=== PATIENT | male | born 1975 | race Caucasian/White ===

== ENCOUNTER → 2017-10-29 08:48 | Outpatient (CLI) | payer BC, SELFPAY ==
[2017-10-29 09:53] LABS: ALB/GLOB Ratio 0.8 RATIO (0.9-2.4); AST(SGOT) 30 U/L (15-37); Alanine Aminotransfer ALT/SGPT 51 U/L (16-61); Albumin, Serum 3.4 g/dL (3.2-5.0); Alkaline Phosphatase 57 U/L (45-117); Anion Gap 4 (5-15); BUN 12 mg/dL (7-18); BUN/Creat Ratio 11.5 RATIO (10-20); Calcium,Total 8.8 mg/dL (8.5-10.1); Chloride 107 mmol/L (98-107); Creatinine, Serum 1.04 mg/dL (0.70-1.30); EST Glomerular Filtration Rate 84 mL/min (>60); Est Glom Filt Rate - Afr Amer 102 mL/min (>60); Globulin 4.1 g/dL (2.2-4.2); Glucose 90 mg/dL (74-106); Potassium 4.2 mmol/L (3.5-5.1); Protein, Total 7.5 g/dL (6.4-8.2); Sodium Level 142 mmol/L (136-145)
== END ==
PROVIDERS: Visit Provider Internal Medicine
DX: G35 Multiple sclerosis (principal)
CPT/HCPCS: 36415; 80053

== ENCOUNTER → 2020-08-20 08:57 | Outpatient (CLI) | payer BC, SELFPAY ==
[2016-04-04 01:04] VITALS: BMI 25.0
[2020-08-20 09:13] LABS: Absolute Lymphocyte Count 0.62 X10^3/uL (0.83-4.51); Absolute Neutrophil Count 2.7 X10^3/uL (2.0-7.7); Basophil# 0.01 X10^3/uL; Basophil% 0.2 % (0-1); Hematocrit 38.3 % (40-54); Hemoglobin 12.3 g/dL (13.0-16.5); Lymphocyte # 0.62 X10^3/ul (4.0); Lymphocyte % 15.1 % (19-41); Mean Corp Hgb Conc 32.1 g/dL (32-36); Mean Corpuscular Hgb 30.6 pg (27.0-32.0); Mean Corpuscular Volume 95.3 fL (80-94); Mean Platelet Vol. 11.4 fl (6.2-12.0); Monocyte# 0.74 X10^3/uL; NRBC Flagged by Analyzer 0 % (0-5); Neutrophil # 2.73 X10^3/uL (2.7-7.7); Neutrophil % 66.5 % (47-70); Platelet Count 144 K/mm3 (150-450); RBC Distribution Width CV 13.1 % (11.6-14.6); RBC Distribution Width SD 46.4 fl (35.1-43.9); Red Blood Count 4.02 M/mm3 (4.6-6.2); White Blood Count 4.1 K/mm3 (4.4-11.0)
--- NOTE | 2020-08-20 09:15 | RAD_ITS ---
STUDY: X-RAY CHEST REASON FOR EXAM: Male, 44 years old. Sob, pain taking in a deep breath TECHNIQUE: PA and lateral views of the chest. COMPARISON: None. FINDINGS: Focal infiltrate is seen in the superior segment of the left lower lobe. Follow-up is recommended. There is no demonstrated pleural abnormality. Normal size heart. Normal mediastinum and yamilet. Normal visualized pulmonary arteries. Normal visualized aortic arch and descending thoracic aorta. Normal visualized thoracic spine. Normal visualized ribs, clavicles, and shoulders. There is no demonstrated abnormality of the visualized soft tissue structures of the upper abdomen. RAD/Chest PA and Lateral IMPRESSION: Focal infiltrate in the superior segment of the left lower lobe. Follow-up is recommended. Electronically Signed: Eliseo Kumar, at 9:54 EST , Service support ,
[2020-08-20 09:29] LABS: D-Dimer Quantitative (DVT/PE) 0.37 FEU/ug/m (0.27-0.49)
[2020-08-20 09:30] LABS: ALB/GLOB Ratio 0.6 RATIO (0.9-2.4); AST(SGOT) 33 U/L (15-37); Alanine Aminotransfer ALT/SGPT 42 U/L (16-61); Albumin, Serum 2.9 g/dL (3.2-5.0); Alkaline Phosphatase 56 U/L (45-117); Anion Gap 6 (5-15); BUN 11 mg/dL (7-18); Calcium,Total 8.4 mg/dL (8.5-10.1); Chloride 102 mmol/L (98-107); Creatinine, Serum 0.91 mg/dL (0.70-1.30); EST Glomerular Filtration Rate 96 mL/min (>60); Est Glom Filt Rate - Afr Amer 117 mL/min (>60); Globulin 4.9 g/dL (2.2-4.2); Glucose 81 mg/dL (74-106); Protein, Total 7.8 g/dL (6.4-8.2); Sodium Level 139 mmol/L (136-145)
== END ==
PROVIDERS: PCP Internal Medicine; Visit Provider Internal Medicine
DX: R06.02 Shortness of breath (principal)
CPT/HCPCS: 36415; 71046; 80053; 85025; 85379

== ENCOUNTER 2020-08-23 21:37 | Emergency (ER) | payer BC, SELFPAY ==
[2020-08-23 21:39] VITALS: BP 144/91; PULSE 82; RESP 18; TEMP 37.7; O2SAT 95; BMI 23.1
--- NOTE | 2020-08-23 21:58 | ED.DCSUM_ITS ---
History of Present Illness Chief Complaint: Fever Narrative: This patient is a 44-year-old male who presents with fever. About 1 month ago his tested positive for Covid. He then developed symptoms including cough body aches fevers loss of sense of taste and smell. He was not tested at that time because he felt his symptoms were consistent with Covid and that testing would not change management consultant. However he continues to have fevers a month later. He is not short of breath. He just developed some diarrhea today. He spoke to his primary care physician. Had outpatient labs and a chest x-ray done which showed a left lower lobe pneumonia. He had a negative D-dimer. He was prescribed Levaquin and Zithromax. He is on day 3 of antibiotics but his primary care physician was concerned because he was still running a fever. No nausea or vomiting. He is not short of breath. He does have a history of mul tiple sclerosis. He was also recently put on prednisone as he had started to develop MS flare symptoms. Signs MS patient denies any other medical history such as diabetes hypertension hyperlipidemia. Past Medical History - Allergies and Home Meds Allergies/Adverse Reactions: Allergies amoxicillin Adverse Reaction (Verified 08/23/20 21:42) Rash Primary Care Physician: Abena Osorio DO [Primary Care Provider] - Past Medical History: - - Multiple sclerosis Smoking Status: Never smoker Review of Systems All systems negative except as indicated General: Reports: Fever Eyes: Denies: Visual changes - bilaterally ENT: Denies: Bilateral ear pain Cardiovascular: Denies: Chest pain Respiratory: Reports: Cough. Denies: Dyspnea Gastrointestinal: Reports: Diarrhea. Denies: Abdominal pain, Nausea, Vomiting Musculoskeletal: Reports: Myalgias, Arthralgias Skin: Denies: Rash Neurological: Denies: Headache Hematologic: Denies: Easy bruising Allergy: Denies: Uticaria Physical Exam Vital Signs/Narrative: Vital Signs Temp Pulse Resp BP Pulse Ox 08/23/20 21:39 99.9 F H 82 18 144/91 H 95 Inital Vital Signs reviewed: Yes General: Well nourished, Well developed Head: Normocephalic Eyes: EOMI ENT: Moist mucous membranes Neck: Supple Cardiovascular: Regular rate, Regular rhythm Respiratory: No distress, CTA bilaterally. Negative for: Rales, Wheezing Abdomen: Soft, Nontender Skin: Normal color Neurological: Alert Psychological: Normal affect Diagnostic/Tx/Re-eval Impressions Chest X-Ray 08/23/20 22:20 IMPRESSION: New infiltrate overlying the left upper lung on frontal projection compared to previous exam. Electronically Signed: Blaise Martinez DO at 22:39 EST , Service support , Chest CTA 08/23/20 23:06 IMPRESSION: 1. No evidence of pulmonary embolism or aortic dissection. 2. Scattered groundglass opacities throughout the bilateral upper and lower lobes consistent with patient''s known viral etiology of illness. Electronically Signed: Blaise MartinezDO at 23:49 EST , Service support , 08/23/20 22:20 Chest 1 View (Portable) [RAD] Stat 08/23/20 23:06 CTA Chest W/WO Contrast [CT] Stat 08/23/20 22:15 Mucosa - Nose SARS-CoV-2 Antigen (Rapid) - Final Laboratory Results 08/23/20 08/23/20 08/23/20 22:15 22:15 22:15 WBC 3.6 L RBC 4.22 L Hgb 12.8 L Hct 39.4 L MCV 93.4 MCH 30.3 MCHC 32.5 RDW Std Deviation 45.0 H RDW Coeff of Heather 13.3 Plt Count 181 MPV 11.0 Immature Gran % (Auto) 0.600 Neut % (Auto) 76.2 H Lymph % (Auto) 11.6 L [place] % (Auto) 11.3 H Eos % (Auto) 0.0 Baso % (Auto) 0.3 Absolute Neuts (auto) 2.8 Absolute Lymphs (auto) 0.42 L Nucleated RBC % 0 Differential Comment SCANNED Diff Path Review May foll Sodium 136 Potassium 3.9 Chloride 101 Carbon Dioxide 30.0 Anion Gap 5 BUN 16 Creatinine 1.00 Estim Creat Clear Calc 89.97 Est GFR (MDRD) Af Amer 105 Est GFR (MDRD) Non-Af 87 BUN/Creatinine Ratio 16.1 Glucose 113 H Lactic Acid 1.4 Calcium 8.6 Total Bilirubin 0.40 AST 28 ALT 38 Alkaline Phosphatase 53 Total Protein 8.0 Albumin 2.8 L Globulin 5.2 H Albumin/Globulin Ratio 0.5 L - Medical Decision Making Patient's laboratory studies are notable for leukopenia which can be seen with a viral illness and there is high clinical suspicion for COVID-19. Patient's Covid antigen returned negative. However false negative rate increases with the antigen test to further illness. I suspect this is a false negative. One-view portable chest x-ray was obtained. On my interpretation the shows a right upper lobe infiltrate which is new from prior x-ray. On previous x-ray patient had a lingular infiltrate. Given bilateral infiltrates a CT of the chest was obtained to further characterize. Given the coagulopathy associated with COVID- 19 I performed this as a CTA of the chest also rule out pulmonary embolism. No pulmonary believes him or aortic dissection but there are bilateral groundglass infiltrates consistent with a viral pneumonia. Patient is already on Levaquin and azithromycin. He was mainly sent in because he was still running fever despite 3 days of antibiotics. This may be related the fact that the pneumonia is viral in nature. However even with a secondary bacterial pneumonia it is possible still be running a fever a few days into treatment. He is not short of breath. He is not hypoxic. At this time I do not see an indication for hospitalization. Blood cultures were also obtained. Lactic acid was normal. Patient is agreeable to this plan. He will continue current management but does understand return for new or worsening symptoms and was advised on signs and symptoms to monitor for. ED Disposition - Plan for ED Patient: Disposition: Home or Assisted Living Diagnosis: Bilateral pneumonia Instructions: ED Pneumonia (Adult), Coronavirus Disease 2019 (COVID-19): Overview Referrals: Abena Osorio DO [Primary Care Provider] -
--- NOTE | 2020-08-23 22:20 | RAD_ITS ---
STUDY: X-RAY CHEST REASON FOR EXAM: Male, 44 years old. PT ASSUMES HE HAD COVID 19,FEVER X 27 DAYS WAS POSITIVE AND PT HAD SAME SYMPTOMS.HERE BECAUSE OF FEVER HAS CONTINUED SO LONG 101.5 AND COUGH HX MS TECHNIQUE: Single AP portable view of the chest. COMPARISON: 08/20/2020 FINDINGS: Mild infiltrate overlies the left upper lung on frontal projection. There is no demonstrated pleural abnormality. Normal size heart. Normal mediastinum and yamilet. Normal visualized pulmonary arteries. Normal visualized aortic arch and descending thoracic aorta. Normal visualized thoracic spine. Normal visualized ribs, clavicles, and shoulders. There is no demonstrated abnormality of the visualized soft tissue structures of the upper abdomen. RAD/Chest 1 View (Portable) IMPRESSION: New infiltrate overlying the left upper lung on frontal projection compared to previous exam. Electronically Signed: Blaise Martinez DO at 22:39 EST , Service support ,
[2020-08-23] MEDS: 0.9% Normal Saline 1,000 ML 999 ML IV (22:21)
[2020-08-23 22:29] LABS: Absolute Lymphocyte Count 0.42 X10^3/uL (0.83-4.51); Absolute Neutrophil Count 2.8 X10^3/uL (2.0-7.7); Basophil# 0.01 X10^3/uL; Basophil% 0.3 % (0-1); Hematocrit 39.4 % (40-54); Hemoglobin 12.8 g/dL (13.0-16.5); Lymphocyte # 0.42 X10^3/ul (4.0); Lymphocyte % 11.6 % (19-41); Mean Corp Hgb Conc 32.5 g/dL (32-36); Mean Corpuscular Hgb 30.3 pg (27.0-32.0); Mean Corpuscular Volume 93.4 fL (80-94); Monocyte# 0.41 X10^3/uL; Monocyte% 11.3 % (0-10); NRBC Flagged by Analyzer 0 % (0-5); Neutrophil # 2.77 X10^3/uL (2.7-7.7); Neutrophil % 76.2 % (47-70); POSITIVE DIFFERENTIAL YES; Platelet Count 181 K/mm3 (150-450); RBC Distribution Width CV 13.3 % (11.6-14.6); Red Blood Count 4.22 M/mm3 (4.6-6.2); White Blood Count 3.6 K/mm3 (4.4-11.0)
[2020-08-23 22:43] LABS: Differential Indicated SCAN CRITERIA MET
[2020-08-23 22:46] LABS: ALB/GLOB Ratio 0.5 RATIO (0.9-2.4); AST(SGOT) 28 U/L (15-37); Alanine Aminotransfer ALT/SGPT 38 U/L (16-61); Albumin, Serum 2.8 g/dL (3.2-5.0); Alkaline Phosphatase 53 U/L (45-117); Anion Gap 5 (5-15); BUN 16 mg/dL (7-18); BUN/Creat Ratio 16.1 RATIO (10-20); Calcium,Total 8.6 mg/dL (8.5-10.1); Chloride 101 mmol/L (98-107); EST Glomerular Filtration Rate 87 mL/min (>60); Est Glom Filt Rate - Afr Amer 105 mL/min (>60); Estimated Creatinine Clearance 89.97 ml/min; Globulin 5.2 g/dL (2.2-4.2); Glucose 113 mg/dL (74-106); Potassium 3.9 mmol/L (3.5-5.1); Sodium Level 136 mmol/L (136-145)
[2020-08-23 22:51] LABS: Differential Comment SCANNED
[2020-08-23 22:52] LABS: Lactic Acid 1.4 mmol/L (0.4-1.9)
[2020-08-23 23:04] VITALS: BP 146/105; PULSE 81; RESP 24; TEMP 37.7; O2SAT 97
--- NOTE | 2020-08-23 23:06 | CT_ITS ---
STUDY: CTA CHEST REASON FOR EXAM: Male, 44 years old. FEVER, COUGH X 1 MO. SHERICE, LLL PNEUMONIA. NEG COVID TODAY, DIAGNOSED 27 DAYS AGO. RADIATION DOSAGE (If Supplied By Facility): CTDIvol = ( 8.18 ) mGy, DLP = ( 331.67 ) mGycm TECHNIQUE: The examination was performed with the intravenous administration of IV 100mL Isovue-370. Post-processing of the angiographic images was performed, with multiplanar reformation and 3D reconstruction. Individualized dose optimization techniques were used for this CT. COMPARISON: None. FINDINGS: Normal enhancement of the main pulmonary artery and right and left pulmonary arteries. Normal enhancement of the bilateral peripheral pulmonary arteries. There is no demonstrated pulmonary embolism. Normal thoracic aorta and visualized great vessels. There is no demonstrated aortic dissection. Normal heart and pericardium. Normal mediastinum. Normal hilar regions. Normal visualized trachea and bronchi. The lungs are well expanded. Scattered groundglass opacities throughout the bilateral upper and lower lobes consistent with patient''s known viral etiology of illness. Normal pleura. Normal chest wall structures. Normal osseous structures. Normal visualized upper abdomen. CT/CTA Chest W/WO Contrast IMPRESSION: 1. No evidence of pulmonary embolism or aortic dissection. 2. Scattered groundglass opacities throughout the bilateral upper and lower lobes consistent with patient''s known viral etiology of illness. Electronically Signed: Blaise Martinez DO at 23:49 EST , Service support ,
[2020-08-24 00:12] VITALS: BP 146/102; PULSE 85; RESP 23; O2SAT 96
[2020-08-25 12:13] LABS: Pathologist Review Reviewed
== END 2020-08-24 00:13 | disposition home or self-care (01) ==
PROVIDERS: Emergency Provider Emergency Medicine; PCP Internal Medicine
DX: J18.9 Pneumonia, unspecified organism (principal); G35 Multiple sclerosis
CPT/HCPCS: 71045; 71275; 80053; 83605; 85025; 87040; 87426; 96360; 99285; J7030; Q9967; A4216

== ENCOUNTER → 2020-09-12 | Outpatient (CLI) | payer BC, SELFPAY ==
[2020-08-23 21:39] VITALS: BMI 23.1
[2020-09-12 16:58] LABS: D-Dimer Quantitative (DVT/PE) 1.96 FEU/ug/m (0.27-0.49)
== END | disposition home or self-care (01) ==
LOC: LABSPEC 14:55
PROVIDERS: PCP Internal Medicine; Referring Provider Internal Medicine; Visit Provider Internal Medicine
DX: R07.9 Chest pain, unspecified (principal)
CPT/HCPCS: 85379

== ENCOUNTER → 2020-09-15 08:29 | Outpatient (CLI) | payer BC, OTHER, SELFPAY ==
[2020-08-23 21:39] VITALS: BMI 23.1
--- NOTE | 2020-09-15 08:54 | CT_ITS ---
STUDY: CTA CHEST REASON FOR EXAM: Male, 45 years old. ELEVATED D-DIMER, S/P COVID X 2 MONTH AGO, STILL HAVING DIFFICULTY WITH DEEP BREATHS RADIATION DOSAGE (If Supplied By Facility): CTDIvol = ( 10 ) mGy, DLP = ( 376.32 ) mGycm TECHNIQUE: The examination was performed with the intravenous administration of IV 100mL Isovue-300. Post-processing of the angiographic images was performed, with multiplanar reformation and 3D reconstruction. Individualized dose optimization techniques were used for this CT. COMPARISON: Comparison is made with prior examination dated 08/23/2020. FINDINGS: Normal enhancement of the main pulmonary artery and right and left pulmonary arteries. Normal enhancement of the bilateral peripheral pulmonary arteries. There is no demonstrated pulmonary embolism. Normal thoracic aorta and visualized great vessels. There is no demonstrated aortic dissection. Normal heart and pericardium. Normal mediastinum. Normal hilar regions. Normal visualized trachea and bronchi. The lungs are well expanded. Since prior examination, there is been a marked degree of improvement of the bilateral patchy areas of airspace disease. There now is evidence of a focal area of infiltration in the medial aspect of the left lung apex extending inferiorly into the posterior medial segment of the left upper lobe. This was not seen on prior study. The previously seen infiltrate in the right upper lobe as well as in the left lower lung zone most completely resolved. Minimal residual changes persist in the right lower lobe laterally. Normal pleura. Normal chest wall structures. Normal osseous structures. Normal visualized upper abdomen. CT/CTA Chest W/WO Contrast IMPRESSION: New focal infiltrate seen in the left lung apex extending into the posterior medial segment of the left upper lobe. The remainder of the examination shows marked improvement as compared to prior study. Electronically Signed: lEiseo Kumar MD at 9:30 EST , Service support ,
--- NOTE | 2020-09-15 15:02 | VDLE_ITS ---
Reason For Study: Calf Pain RIGHT LEFT GSV is normal. GSV is normal. CFV is compressible, spontaneous, phasic, CFV is compressible, spontaneous, phasic, competent and demonstrates normal competent, and demonstrates normal augmentation. augmentation. FV is compressible, spontaneous, phasic, FV is compressible, spontaneous, phasic, competent and demonstrates normal competent and demonstrates normal augmentation. augmentation. POP V is compressible, spontaneous, phasic, POP V is compressible, spontaneous, phasic, competent and demonstrates normal competent and demonstrates normal augmentation. augmentation. T/P Trunk is compressible. T/P Trunk is compressible. PTV is compressible. PTV is compressible. RT PerV is compressible. LT PerV is compressible. Procedure Exam performed in department. A preliminary report was called and/or faxed to Dr. Osorio. Interpretation Summary Deep veins of the lower extremities are bilaterally patent and compressible segmentally. There is no evidence of deep vein thrombosis on either side. Valvular competence appears intact within the proximal deep venous systems bilaterally. The great saphenous veins appear bilaterally patent and compressible segmentally. Ordering Physician: Abena Osorio Referring Physician: Abena Osorio Performed By: Mahogany Arreaga, YOSELYN, RVT
== END ==
PROVIDERS: PCP Internal Medicine; Referring Provider Internal Medicine; Visit Provider Internal Medicine
DX: R79.89 Other specified abnormal findings of blood chemistry (principal); M79.661 Pain in right lower leg; M79.662 Pain in left lower leg
CPT/HCPCS: 71275; 93970; Q9967

== ENCOUNTER → 2021-07-22 15:37 | Outpatient (CLI) | payer BC, OTHER, SELFPAY ==
--- NOTE | 2021-07-22 15:50 | CT_ITS ---
STUDY: CT ABDOMEN AND PELVIS WITHOUT CONTRAST REASON FOR EXAM: Male, 45 years old. STONE PROTOCOL RADIATION DOSAGE (If Supplied By Facility): CTDIvol = ( 6.80 ) mGy, DLP = ( 339.87 ) mGycm TECHNIQUE: Transaxial images were obtained from the dome of the diaphragm to the symphysis pubis without oral contrast, and without intravenous contrast. Sagittal and coronal images were reconstructed. Individualized dose optimization techniques were used for this CT. COMPARISON: None. FINDINGS: The visualized lung bases are unremarkable. The visualized portions of the heart are within normal limits. Normal liver. Normal gallbladder and extrahepatic biliary system. Normal spleen. Normal pancreas. Normal bilateral adrenal glands. Mild hydronephrosis of the right kidney mild right hydroureter. 3 mm stone in left kidney. Normal visualized stomach. Normal small intestine. Fecal retention in the colon. The appendix is visualized and appears normal. Normal abdominal aorta. Normal inferior vena cava. Normal retroperitoneum. There is a 2 mm stone within the intramural segment of the right UVJ of the urinary bladder. Normal abdominal wall. Normal osseous structures. CT/Abdomen/Pelvis without Cont IMPRESSION: Right hydronephrosis and hydroureter with a stone noted at the right UVJ. Colonic fecal retention. Electronically Signed: Warner Glaser DO at 17:22 EST Tel [phone], Service support ,
== END ==
PROVIDERS: PCP Internal Medicine; Referring Provider Internal Medicine; Visit Provider Internal Medicine
DX: R10.9 Unspecified abdominal pain (principal)
CPT/HCPCS: 74176

== ENCOUNTER → 2022-02-04 | Outpatient (CLI) | payer BC, OTHER, SELFPAY ==
--- NOTE | 2022-02-04 12:59 | ECHODONC_ITS ---
Reason For Study: SOB, Multiple Myeloma Procedure This was a 2D Doppler, Color Flow transthoracic echocardiogram. Myocardial strain analysis was performed in this exam to aid in the assessment of cardiac function. Exam performed in department. Left Ventricle Normal LV size. Left ventricular systolic function is normal. The estimated ejection fraction is 60 %. Normal diastology for age. No regional wall motion abnormalities noted. Right Ventricle Normal RV size. Normal systolic function. Atria Normal left atrium. Normal right atrium. Mitral Valve Normal mitral valve. Tricuspid Valve Normal tricuspid valve. Trivial tricuspid valve insufficiency. Aortic Valve Normal aortic valve. Trisinus/trileaflet aortic valve. Pulmonic Valve Normal pulmonic valve. Great Vessels Normal aortic root. The pulmonary artery is normal size. Normal inferior vena cava. Pericardium/Pleural No pericardial effusion. MMode/2D Measurements & Calculations LVIDd: 4.2 cm IVSd: 0.87 cm Ao root diam: 2.8 cm LVIDs: 2.3 cm LVPWd: 0.95 cm RVDd: 3.5 cm FS: 45.4 % LAV(MOD-bp): 40.8 ml LVAd ap4: 24.3 cm2 LVAd ap2: 26.2 cm2 LAV(MOD-bp) Indexed: 21.1 ml/m2 LVLd ap4: 7.7 cm LVLd ap2: 7.4 cm LAV(MOD-sp2): 49.3 ml EDV(MOD-sp4): 64.0 ml EDV(MOD-sp2): 80.8 ml LAV(MOD-sp4): 32.2 ml EDV(sp4-el): 65.2 ml EDV(sp2-el): 78.2 ml LVAs ap4: 11.4 cm2 LVAs ap2: 12.0 cm2 LVLs ap4: 6.2 cm LVLs ap2: 6.1 cm ESV(MOD-sp4): 19.2 ml ESV(MOD-sp2): 21.0 ml ESV(sp4-el): 17.9 ml ESV(sp2-el): 20.0 ml EF(MOD-sp4): 70.1 % EF(MOD-sp2): 74.1 % EF(sp4-el): 72.6 % SV(MOD-sp4): 44.9 ml SV(MOD-sp2): 59.9 ml SV(sp4-el): 47.3 ml LA dimension(2D): 3.3 cm LA A4 area: 13.9 cm2 RA A4 area: 12.4 cm2 Doppler Measurements & Calculations MV E max manuel: 91.2 cm/sec Lat Peak E' Manuel: 11.5 cm/sec Med Peak E' Manuel: 11.8 cm/sec MV A max manuel: 71.6 cm/sec E/E' lat: 7.9 E/E' med: 7.8 MV E/A: 1.3 Ao V2 max: 168.1 cm/sec LV V1 max: 144.9 cm/sec PA V2 max: 96.5 cm/sec Ao max P.3 mmHg LV V1 max P.4 mmHg ECHO/ONC Echo Complete Interpretation Summary Normal LV size. Left ventricular systolic function is normal. The estimated ejection fraction is 60 %. Normal diastology for age. The global longitudinal strain is normal. The global longitudinal strain = -23. 1 % (normal). Ordering Physician: Elton Barajas Referring Physician: Abena Osorio D.O. Performed By: Alyssa Suggs RDCS
--- NOTE | 2022-02-04 14:30 | BD_ITS ---
STUDY: DUAL ENERGY X-RAY ABSORPTIOMETRY / DXA REASON FOR EXAM: Male, 46 years old. MULTIPLE MYELOMA/MULTIPLE SCLEROSIS TECHNIQUE: Bone Mineral Density (BMD) measurements of lumbar spine and bilateral hips were obtained. COMPARISON: None. FINDINGS: Lumbar Spine (L1-L4): g/cm2 (1.070) / T-score (0.2) / Z-score (0.0) Findings are suggestive of normal bone density with a low fracture risk. Left Femur Total: g/cm2 (0.913) / T-score (-0.8) / Z-score (-0.5) Left Femoral Neck: g/cm2 (0.871) / T-score (-0.4) / Z-score (0.2) Right Femur Total: g/cm2 (0.969) / T-score (-0.4) / Z-score (-0.2) Right Femoral Neck: g/cm2 (0.861) / T-score (-0.5) / Z-score (0.1) BD/Dexa Bone Density Study IMPRESSION: The patient is considered normal as outlined below according to World Mathew Organization (WHO) criteria with a low fracture risk. Reference Information: The T-score is the number of standard deviations above or below the standard which is normal for young adults at their peak bone mineral density. The World Health Organization (WHO) interprets the T-scores as follows: Above -1 Normal bone density Between -1 and -2.5 Osteopenia Equal to / or below -2.5 Osteoporosis As a practical clinical guideline, osteopenia may be graded as follows: Mild -1 through -1.5 Moderate -1.6 through -2.0 Severe -2.1 through -2.4 The Z-score is the number of standard deviations above or below age-matched controls. A Z-score of less than -1.5 would be considered abnormal. References: 1. NIH Osteoporosis and Related Bone Diseases www osteo.org 2. International Society for Clinical Densitometry www iscd.org 3. National Osteoporosis Foundation www nof.org Electronically Signed: Eliseo Kumar MD at 10:15 EDT ,
== END | disposition home or self-care (01) ==
PROVIDERS: PCP Internal Medicine; Referring Provider Internal Medicine Medical Oncology; Visit Provider Internal Medicine Medical Oncology
DX: C90.00 Multiple myeloma not having achieved remission (principal); G35 Multiple sclerosis; R06.02 Shortness of breath
CPT/HCPCS: 77080; 93306; 93356

== ENCOUNTER → 2022-05-04 | Outpatient (CLI) | payer BC, OTHER, SELFPAY ==
[2022-05-04 17:35] LABS: Erythrocyte Sedimentation Rate 62 mm/hr (0-20)
[2022-05-04 17:37] LABS: Absolute Lymphocyte Count 1.44 X10^3/uL (0.83-4.51); Absolute Neutrophil Count 2.9 X10^3/uL (2.0-7.7); Basophil# 0.04 X10^3/uL; Basophil% 0.8 % (0-1); Eosinophil# 0.11 X10^3/uL; Eosinophils% 2.2 % (0-5); Hematocrit 39.6 % (40-54); Hemoglobin 13.2 g/dL (13.0-16.5); Lymphocyte # 1.44 X10^3/ul (0.83-4.51); Mean Corp Hgb Conc 33.3 g/dL (32-36); Mean Corpuscular Hgb 30.9 pg (27.0-32.0); Mean Corpuscular Volume 92.7 fL (80-94); Mean Platelet Vol. 11.9 fl (6.2-12.0); Monocyte# 0.44 X10^3/uL; Monocyte% 8.9 % (0-10); NRBC Flagged by Analyzer 0 % (0-5); Neutrophil # 2.93 X10^3/uL (2.7-7.7); Neutrophil % 58.9 % (47-70); Platelet Count 181 K/mm3 (150-450); RBC Distribution Width CV 12.8 % (11.6-14.6); RBC Distribution Width SD 43.5 fl (35.1-43.9); Red Blood Count 4.27 M/mm3 (4.6-6.2)
[2022-05-04 17:44] LABS: ALB/GLOB Ratio 0.7 RATIO (0.9-2.4); AST(SGOT) 15 U/L (15-37); Alanine Aminotransfer ALT/SGPT 18 U/L (16-61); Albumin, Serum 3.3 g/dL (3.2-5.0); Alkaline Phosphatase 46 U/L (45-117); Anion Gap 7 (5-15); BUN 12 mg/dL (7-18); BUN/Creat Ratio 10.7 RATIO (10-20); Calcium,Total 9.1 mg/dL (8.5-10.1); Chloride 106 mmol/L (98-107); Creatinine, Serum 1.12 mg/dL (0.70-1.30); EST Glomerular Filtration Rate 76 mL/min (>60); Est Glom Filt Rate - Afr Amer 91 mL/min (>60); Globulin 4.6 g/dL (2.2-4.2); Glucose 101 mg/dL (74-106); LDH 125 U/L (87-241); Potassium 3.9 mmol/L (3.5-5.1); Protein, Total 7.9 g/dL (6.4-8.2); Sodium Level 142 mmol/L (136-145); Uric Acid 5.4 mg/dL (3.5-7.2)
[2022-05-07 16:09] LABS: Albumin 3.7 g/dL (2.9-4.4); Alpha-1-Globulins 0.1 g/dL (0.0-0.4); Alpha-2-Globulins 0.5 g/dL (0.4-1.0); Free Kappa Light Chains 5.9 mg/L (3.3-19.4); Free Lambda Light Chains 520.5 mg/L (5.7-26.3); Gamma Globulin 0.4 g/dL (0.4-1.8); Immunoglobulin G 479 mg/dL (603-1613); PROEL- TOTAL PROTEIN 7.4 g/dL (6.0-8.5)
[2022-05-08 16:50] LABS: Immunoglobulin A 2527 mg/dL (90-386)
[2022-05-08 16:51] LABS: Immunoglobulin M < 5 mg/dL (20-172)
== END | disposition home or self-care (01) ==
LOC: LAB 16:20
PROVIDERS: PCP Internal Medicine; Visit Provider Internal Medicine Medical Oncology
DX: C90.00 Multiple myeloma not having achieved remission (principal)
CPT/HCPCS: 36415; 80053; 82784; 83615; 83883; 84165; 84550; 85025; 85652; 86334

== ENCOUNTER → 2023-06-21 | Outpatient (CLI) | payer OTHER, SELFPAY | END | disposition home or self-care (01) | PROVIDERS: PCP Nurse Practitioner Family; Referring Provider Nurse Practitioner Family; Visit Provider Nurse Practitioner Family | DX: G47.10 Hypersomnia, unspecified (principal) | CPT/HCPCS: 95806 ==

== ENCOUNTER 2023-12-30 06:56 | Day surgery (SDC) | payer OTHER, SELFPAY ==
[2023-12-30 07:13] VITALS: BP 133/91; PULSE 72; RESP 16; TEMP 36.4; O2SAT 99; BMI 27.1
[2023-12-30] MEDS: Lactated Ringers 1,000 ML 15 ML IV (07:24)
--- NOTE | 2023-12-30 08:13 | HP.PCM_ITS ---
HPI - General HPI Narrative ROBSON REECE, is a 48 M who presents for screening colonoscopy. Patient has never had a screening colonoscopy in the past. He denies abdominal pain or blood in the stool. He denies family history of colon cancer. He is on no blood thinners. [facility] Medical History (Updated 12/26/23 @ 14:12 by Angelo Rosa) Family hx of colon cancer History of echocardiogram Non-smoker Umbilical hernia Wears contact lenses Home Medications acetaminophen 325 mg capsule 325 mg PO ONCE PRN fever or pain 01/22/22 [History Last Taken Unknown] amlodipine 10 mg tablet 10 mg PO DAILY 08/03/23 [History Last Taken 12/28/23] ocrelizumab 30 mg/mL intravenous solution 300 mg IV [id number] 08/03/23 [History Last Taken Unknown] baclofen 10 mg tablet 10 mg PO BID PRN PRN muscle spasm 12/26/23 [History Last Taken Unknown] Allergy/AdvReac Type Severity Reaction Status Date / Time amoxicillin AdvReac Rash Verified 12/30/23 07:12 Family History Other Diabetes Hypertension Social History Smoking Status: Never smoker Past Medical/Surgical History Planned Operation Planned Operative Procedure/s: COLONOSCOPY Previous Hospitalizations/Surgeries HX Hospitalizations: No Any Problems With Anesthesia: No You/Your Family Experience Fever (Hyperthermia) With Anes: No Cholinesterase deficiency: No Cardiovascular Hx Hypertension: Yes (CONTROLLED WITH MEDS) Respiratory Hx Sleep Apnea: No Hx Respiratory Tract Infection/Cold (presently): No Do You Snore Loudly (louder than talking or can be heard): No Do You Often Feel Tired/ Fatigued/ Sleepy Dring Daytime?: No Has Anyone Observed You Stop Breathing During Sleep?: No Result (for STOP score): Negative Smoking Status: Never smoker Neurological Does patient have nerve stimulator: No Miscellaneous Recent Exposure to Contagious Disease: No Allergies amoxicillin Adverse Reaction (Verified 12/30/23 07:12) Rash Discharge After D/C, Where Do you Plan to Go: Return Home Vital Signs Vital Signs Vital Signs: 12/30/23 07:13 12/30/23 07:13 Temperature 97.5 F L Temperature Source Temporal Pulse Rate 72 Respiratory Rate 16 Respiratory Pattern Normal Blood Pressure 133/91 H Blood Pressure Mean 105 Blood Pressure Source Monitor Blood Pressure Position Semi-Fowlers Blood Pressure Location Right Arm Pulse Ox 99 Oxygen Delivery Method Room Air Weight Weight: 173 lb Body Mass Index (BMI) 27.1 Physical Exam Const alert and oriented x3 HEENT normocephalic Eyes PERRL Resp normal respiratory effort and normal air movement Cardio regular rate and regular rhythm GI soft to palpation, non-tender and non-distended Extremity normal to inspection Assessment & Plan Assessment/Plan (1) Encounter for screening for malignant neoplasm of colon: PLAN: I explained endoscopy in detail to the patient. I explained the risks including but not limited to stroke or heart attack with anesthesia, perforation of the GI tract, bleeding, infection. I explained that any of these could necessitate further emergency surgery. The patient understands and all questions were answered sufficiently. The patient wishes to proceed with procedure. Juan C Cuba MD Pager: [facility] [address] [place] [address], [address] [place] [address] Office: Surgery Risks - Colonoscopy Risks Include but are not Limited To: Risks include but are not limited to: Bleeding, perforation requiring further surgery, inability to complete colonoscopy requiring barium enema.
[2023-12-30 08:44] VITALS: BP 109/73; BP 133/91; PULSE 66; RESP 18; TEMP 36.1; O2SAT 97
--- NOTE | 2023-12-30 08:47 | OP.COLON_ITS ---
Patient Name: Jaxon Douglas Procedure Date: 12/30/2023 8:17 AM Date of : 1975 Age: 48 Procedure: Colonoscopy Indications: Screening for colorectal malignant neoplasm Providers: Juan C Cuba MD Referring MD: Neeraj Becerril [facility], [employer] Medicines: Propofol per Anesthesia Patient Profile: This is a 48 year old male. Refer to note in patient chart for documentation of history and physical. Last Colonoscopy: none. The patient's first colonoscopy is today. Complications: No immediate complications. Procedure: Pre-Anesthesia Assessment: - Prior to the procedure, a History and Physical was performed, and patient medications and allergies were reviewed. The patient's tolerance of previous anesthesia was also reviewed. The risks and benefits of the procedure and the sedation options and risks were discussed with the patient. All questions were answered, and informed consent was obtained. Prior Anticoagulants: The patient has taken no anticoagulant or antiplatelet agents. After reviewing the risks and benefits, the patient was deemed in satisfactory condition to undergo the procedure. After I obtained informed consent, the scope was passed under direct vision. Throughout the procedure, the patient's blood pressure, pulse, and oxygen saturations were monitored continuously. The colonoscope was introduced through the anus and advanced to the cecum, identified by appendiceal orifice and ileocecal valve. The colonoscopy was performed without difficulty. The patient tolerated the procedure well. The quality of the bowel preparation was good. The ileocecal valve, appendiceal orifice, and rectum were photographed. Scope In: 8:26:08 AM Scope Withdrawal Time 0 hours 6 minutes 43 seconds Scope Out: 8:39:30 AM Total Procedure Duration Time 0 hours 13 minutes 22 seconds Findings: The entire examined colon appeared normal on direct and retroflexion views. Impression: - The entire examined colon is normal on direct and retroflexion views. - No specimens collected. Recommendation: - Discharge patient to home. - Resume previous diet. - Continue present medications. - Repeat colonoscopy in 10 years for screening purposes. Procedure Code(s): --- Professional --- 08389, Colonoscopy, flexible; diagnostic, including collection of specimen(s) by brushing or washing, when performed (separate procedure) Diagnosis Code(s): --- Professional --- Z12.11, Encounter for screening for malignant neoplasm of colon CPT copyright 2021 [employer]. All rights reserved. The codes documented in this report are preliminary and upon risk control field representative review may be revised to meet current compliance requirements. Juan C Cuba MD 12/30/2023 8:46:41 AM This report has been signed electronically. Number of Addenda: 0 Note Initiated On: 12/30/2023 8:17 AM
--- NOTE | 2023-12-30 08:47 | OP.CCLET_ITS ---
12/30/2023 Neeraj Becerril [facility], [employer] Re : Colonoscopy procedure for Jaxon Douglas Dear Jerrica This procedure was performed on Saturday, December 30, 2023. My impressions and recommendations are as follows: Impressions : - The entire examined colon is normal on direct and retroflexion views. - No specimens collected. Recommendations : - Discharge patient to home. - Resume previous diet. - Continue present medications. - Repeat colonoscopy in 10 years for screening purposes. My findings are described in the full procedure note, which is enclosed. If I can be of further assistance, please feel free to contact me at Doctor phone number(s): , Work: . Sincerely, Juan C Cuba MD 12/30/2023 8:46:41 AM This report has been signed electronically.
[2023-12-30 08:50] VITALS: BP 111/75; BP 133/91; PULSE 54; RESP 14; O2SAT 98
[2023-12-30 08:55] VITALS: BP 110/79; BP 133/91; PULSE 55; RESP 18; O2SAT 100
[2023-12-30 09:00] VITALS: BP 110/78; BP 133/91; PULSE 50; RESP 12; TEMP 36.1; O2SAT 99
[2023-12-30 09:16] VITALS: BP 133/91
== END 2023-12-30 09:26 | disposition home or self-care (01) ==
LOC: EN 06:57 → AC 06:58
PROVIDERS: PCP Nurse Practitioner Family; Referring Provider Nurse Practitioner Family; Visit Provider Surgery
PROC: 0DJD8ZZ Inspection of Lower Intestinal Tract, Via Natural or Artificial Opening Endoscopic (ICD-10-PCS; CPT 45378; principal; 2023-12-30 08:10)
DX: Z12.11 Encounter for screening for malignant neoplasm of colon (principal); I10 Essential (primary) hypertension; Z80.0 Family history of malignant neoplasm of digestive organs
CPT/HCPCS: 45378; J7120; J2405

== ENCOUNTER → 2024-02-17 | Outpatient (CLI) | payer OTHER, SELFPAY ==
[2024-02-17 15:59] LABS: Absolute Lymphocyte Count 1.28 X10^3/uL (0.83-4.51); Absolute Neutrophil Count 3.3 X10^3/uL (2.0-7.7); Basophil# 0.06 X10^3/uL; Basophil% 1.1 % (0-1); Eosinophil# 0.12 X10^3/uL; Eosinophils% 2.3 % (0-5); Hemoglobin 13.4 g/dL (13.0-16.5); Lymphocyte # 1.28 X10^3/ul (0.83-4.51); Mean Corp Hgb Conc 32.7 g/dL (32-36); Mean Corpuscular Hgb 30.5 pg (27.0-32.0); Mean Corpuscular Volume 93.2 fL (80-94); Mean Platelet Vol. 12.1 fl (6.2-12.0); Monocyte# 0.55 X10^3/uL; Monocyte% 10.3 % (0-10); NRBC Flagged by Analyzer 0 % (0-5); Neutrophil # 3.31 X10^3/uL (2.7-7.7); Neutrophil % 62.1 % (47-70); Platelet Count 167 K/mm3 (150-450); RBC Distribution Width SD 44.6 fl (35.1-43.9); White Blood Count 5.3 K/mm3 (4.4-11.0)
[2024-02-17 16:02] LABS: Erythrocyte Sedimentation Rate 57 mm/hr (0-20)
[2024-02-17 16:20] LABS: ALB/GLOB Ratio 0.8 RATIO (0.9-2.4); AST(SGOT) 19 U/L (15-37); Alanine Aminotransfer ALT/SGPT 19 U/L (16-61); Albumin, Serum 3.4 g/dL (3.2-5.0); Alkaline Phosphatase 49 U/L (45-117); Anion Gap 7 (5-15); BUN 13 mg/dL (7-18); BUN/Creat Ratio 14.4 RATIO (10-20); Calcium,Total 9.5 mg/dL (8.5-10.1); Chloride 105 mmol/L (98-107); EST Glomerular Filtration Rate 96 mL/min (>60); Est Glom Filt Rate - Afr Amer 117 mL/min (>60); Globulin 4.5 g/dL (2.2-4.2); Glucose 114 mg/dL (74-106); LDH 177 U/L (87-241); Potassium 3.9 mmol/L (3.5-5.1); Protein, Total 7.9 g/dL (6.4-8.2); Sodium Level 139 mmol/L (136-145)
[2024-02-17 23:43] LABS: Xtra Tube EP Lab EXTRA TUBE
[2024-02-21 16:10] LABS: Albumin 3.7 g/dL (2.9-4.4); Alpha-1-Globulins 0.2 g/dL (0.0-0.4); Alpha-2-Globulins 0.6 g/dL (0.4-1.0); Free Kappa Light Chains 3.3 mg/L (3.3-19.4); Free Lambda Light Chains 548.7 mg/L (5.7-26.3); Gamma Globulin 0.4 g/dL (0.4-1.8); Immunoglobulin A 2536 mg/dL (90-386); Immunoglobulin G 416 mg/dL (603-1613); Immunoglobulin M < 5 mg/dL (20-172); PROEL- TOTAL PROTEIN 7.6 g/dL (6.0-8.5)
== END | disposition home or self-care (01) ==
LOC: LAB 15:39
PROVIDERS: PCP Nurse Practitioner Family; Referring Provider Internal Medicine Medical Oncology; Visit Provider Internal Medicine Medical Oncology
DX: D47.2 Monoclonal gammopathy (principal)
CPT/HCPCS: 80053; 82784; 83615; 83883; 84165; 85025; 85652; 86334

== ENCOUNTER → 2024-12-14 | Outpatient (CLI) | payer OTHER, SELFPAY ==
[2024-12-14 11:05] LABS: Cholesterol 165 mg/dL (<=200); High Density Lipoprotein 45 mg/dL; Low Density Lipoprotein Calc. 109 mg/dL; Triglycerides 55 mg/dL; Very Low Density Lipoprotein 11 mg/dL (5-40); cholesterol:hdl ratio screen 3.67
[2024-12-14 11:16] LABS: Vitamin B12 312 pg/mL (180-914)
== END | disposition home or self-care (01) ==
LOC: LAB 09:27
PROVIDERS: PCP Nurse Practitioner Family; Referring Provider Nurse Practitioner Family; Visit Provider Nurse Practitioner Family
DX: Z00.00 Encounter for general adult medical examination without abnormal findings (principal); E56.9 Vitamin deficiency, unspecified; E29.1 Testicular hypofunction
CPT/HCPCS: 36415; 80061; 82306; 82607; 84153; 84402; 84403; 84443; G0103

== ENCOUNTER → 2024-12-16 | Outpatient (CLI) | payer OTHER, SELFPAY ==
[2024-12-16 13:05] LABS: Bacteria 0 SEEN /hpf (None Seen); Mucous, Urine 0 SEEN /hpf (<or=2+); Red Blood Cells-Urine 0 SEEN /hpf (0-5); Squamous Epithelial Cells - UA 0 SEEN /hpf (0-5); White Blood Cells 0 SEEN /hpf (0-5)
[2024-12-16 13:08] LABS: Color, Urine Yellow (Yellow); Glucose, Dipstick Normal (Normal); Ketone-Dipstick Negative (Negative); Leukocyte Esterase-Dipstick Negative /ul (Negative); Nitrite-Dipstick Negative (Negative); Occult Blood-Urine Negative /ul (Negative); Protein-Dipstick 15 mg/dl (Negative); Urine Bilirubin Dipstick Negative (Negative); Urine Clarity Clear (Clear); Urine Urobilinogen Normal (Normal)
== END | disposition home or self-care (01) ==
LOC: LABSPEC 13:02
PROVIDERS: PCP Nurse Practitioner Family; Visit Provider Nurse Practitioner Family
DX: Z00.00 Encounter for general adult medical examination without abnormal findings (principal); E56.9 Vitamin deficiency, unspecified; E29.1 Testicular hypofunction
CPT/HCPCS: 81001

== ENCOUNTER → 2025-02-27 | Outpatient (CLI) | payer OTHER, SELFPAY ==
[2025-02-27 20:29] LABS: Color, Urine Straw (Yellow); Glucose, Dipstick Normal (Normal); Ketone-Dipstick Negative (Negative); Leukocyte Esterase-Dipstick Negative /ul (Negative); Nitrite-Dipstick Negative (Negative); Occult Blood-Urine Negative /ul (Negative); Protein-Dipstick 15 mg/dl (Negative); Specific Gravity, Urine 1.010 (1.002-1.030); Urine Bilirubin Dipstick Negative (Negative)
== END | disposition home or self-care (01) ==
LOC: VSLAB 11:58
PROVIDERS: PCP Nurse Practitioner Family; Referring Provider Nurse Practitioner Family; Visit Provider Nurse Practitioner Family
DX: R30.0 Dysuria (principal)
CPT/HCPCS: 81002

== ENCOUNTER → 2025-03-11 | Outpatient (CLI) | payer OTHER, SELFPAY ==
[2025-03-11 12:17] LABS: Color, Urine Yellow (Yellow); Glucose, Dipstick Normal (Normal); Ketone-Dipstick Negative (Negative); Leukocyte Esterase-Dipstick Negative /ul (Negative); Nitrite-Dipstick Negative (Negative); Occult Blood-Urine Negative /ul (Negative); Protein-Dipstick 30 mg/dl (Negative); Specific Gravity, Urine 1.010 (1.002-1.030); Urine Bilirubin Dipstick Negative (Negative)
[2025-03-11 12:37] LABS: Hematocrit 39.2 % (40-54); Hemoglobin 13.1 g/dL (13.0-16.5); Mean Corp Hgb Conc 33.4 g/dL (32-36); Mean Corpuscular Volume 94.2 fL (80-94); Mean Platelet Vol. 12.0 fl (6.2-12.0); Platelet Count 175 K/mm3 (150-450); RBC Distribution Width CV 13.1 % (11.6-14.6); RBC Distribution Width SD 45.2 fl (35.1-43.9); Red Blood Count 4.16 M/mm3 (4.6-6.2); White Blood Count 3.8 K/mm3 (4.4-11.0)
[2025-03-11 12:58] LABS: Anion Gap 12 (5-15); BUN 13 mg/dL (4-19); BUN/Creat Ratio 12.9 RATIO (10-20); Calcium,Total 9.7 mg/dL (7.6-11.0); Carbon Dioxide 26.8 mmol/L (21.0-32.0); Chloride 103 mmol/L (98-108); Glucose 96 mg/dL (70-99); Potassium 4.4 mmol/L (3.3-5.1)
[2025-03-11 13:11] LABS: Creatinine, Urine (random) 205.00 mg/dL (39.00-259.00); Microalbumin,Random Urine 14.9 mg/L (NO RANGE EST.)
== END | disposition home or self-care (01) ==
LOC: VSLAB 08:15
PROVIDERS: PCP Nurse Practitioner Family
DX: I10 Essential (primary) hypertension (principal); R80.9 Proteinuria, unspecified
CPT/HCPCS: 36415; 80048; 81002; 82043; 82570; 85027

== ENCOUNTER → 2025-04-22 | Outpatient (CLI) | payer OTHER, SELFPAY ==
[2025-04-22 11:10] LABS: Hematocrit 39.0 % (40-54); Hemoglobin 13.3 g/dL (13.0-16.5); Immature Granulocytes Count 0.010 X10^3/uL (0.0-0.0); Mean Corp Hgb Conc 34.1 g/dL (32-36); Mean Corpuscular Volume 91.8 fL (80-94); Mean Platelet Vol. 11.5 fl (6.2-12.0); NRBC Flagged by Analyzer 0 % (0-5); Platelet Count 173 K/mm3 (150-450); RBC Distribution Width CV 12.8 % (11.6-14.6); RBC Distribution Width SD 43.2 fl (35.1-43.9); Red Blood Count 4.25 M/mm3 (4.6-6.2); White Blood Count 3.7 K/mm3 (4.4-11.0)
[2025-04-22 11:53] LABS: AST(SGOT) 23 U/L (<=37); Alanine Aminotransfer ALT/SGPT 21 U/L (<=46); Albumin, Serum 3.9 g/dL (3.5-5.0); Alkaline Phosphatase 48 U/L (40-129); Anion Gap 14 (5-15); BUN 12 mg/dL (4-19); BUN/Creat Ratio 13.8 RATIO (10-20); Calcium,Total 9.3 mg/dL (7.6-11.0); Carbon Dioxide 24.5 mmol/L (21.0-32.0); Chloride 103 mmol/L (98-108); Globulin 3.7 g/dL (2.2-4.2); Glucose 90 mg/dL (70-99); Potassium 4.2 mmol/L (3.3-5.1)
[2025-04-23 05:07] LABS: Immunoglobulin G 364 mg/dL (603-1613)
== END | disposition home or self-care (01) ==
PROVIDERS: PCP Nurse Practitioner Family; Referring Provider Nurse Practitioner Gerontology; Visit Provider Nurse Practitioner Gerontology
DX: Z79.899 Other long term (current) drug therapy (principal); G35 Multiple sclerosis
CPT/HCPCS: 36415; 80053; 82784; 85025

== ENCOUNTER → 2025-08-20 | Outpatient (CLI) | payer OTHER, SELFPAY ==
--- NOTE | 2025-08-20 08:38 | MRI_ITS ---
PROCEDURE: BRAIN W/WO CONTRAST 08/20/2025 REASON FOR EXAM: MULTIPLE SCLEROSIS, RELAPSIN-REMITTING TECHNIQUE: Procedure Code: [id number] Modality: MR Procedure: BRAIN W/WO CONTRAST Multiplanar and multisequence images were obtained. CONTRAST: Clariscan VOLUME: 15 mL COMPARISON: MRI brain 06/2023 FINDINGS: Redemonstration of multiple supratentorial and infratentorial T2/FLAIR white matter hyperintense lesions. The distribution is predominantly periventricular and subcortical. There is involvement of the callososeptal interface. Many of the lesions have corresponding T1 hypointensity compatible with axonal volume loss. No evidence of new lesions. No enhancing lesion. No acute infarct or hemorrhage. No extra-axial fluid collection. Partially empty sella. No significant mass effect or herniation of the brain. Global cerebral volume loss, advanced for age. No hydrocephalus. The basal cisterns are patent. The intracranial large vessel arterial flow voids are maintained. The mastoid air cells clear. The paranasal sinuses are predominately clear. The orbits are unremarkable. The calvarial bone marrow signal is within normal limits. MRI/Brain W/WO Contrast IMPRESSION: Stable multiple supratentorial and infratentorial white matter lesions consiste nt with clinical history of demyelinating disease. No new lesions. No active lesions. Reading Location: [id number]
--- NOTE | 2025-08-20 08:39 | MRI_ITS ---
PROCEDURE: SPINE CERVICAL W/WO CONTRAST; SPINE THORACIC W/WO CONTRAST 08/20/2025 REASON FOR EXAM: MULTIPLE SCLEROSIS, RELAPSING-REMITTING TECHNIQUE: Procedure Code: MRISPCWW; MRISPTWW Modality: MR Procedure: SPINE CERVICAL W/WO CONTRAST; SPINE THORACIC W/WO CONTRAST Multiplanar and multisequence images were obtained with intravenous gadolinium- based contrast administration. CONTRAST: Clariscan VOLUME: 15 mL COMPARISON: MRI cervical spine 06/2023 FINDINGS: Motion artifact from respiration limits evaluation of the thoracic spinal canal. The visualized posterior fossa contents appear within normal limits. The normal cervical lordosis and thoracic kyphosis are maintained. The atlantooccipital and atlantoaxial joints are normally aligned. The cervical and thoracic vertebral bodies are normal in height. The cervical and thoracic vertebral bodies are normal in alignment. The bone marrow signal is within normal limits. Spinal cord lesions: C3 dorsal left cord lesion, stable (series 8 image 7). C4-C5 short-segment patchy lateral cord lesions, stable (series 9 image 9). C6-C7 short-segment patchy right lateral cord lesion, stable (series 12 image 155). No definite thoracic spinal cord lesions. No evidence of new cervical spinal cord lesions. There is no enhancing lesion in the cervical or thoracic spine. C2-C3: No significant spinal canal stenosis or neural foraminal narrowing. C3-C4: No significant spinal canal stenosis or neural foraminal narrowing. C4-C5: No significant spinal canal stenosis or neural foraminal narrowing. Disc bulge contributes to mild spinal canal stenosis. Bilateral facet arthrosis and uncovertebral spurring. Mild bilateral neural foraminal narrowing. C5-C6: Disc bulge contributes to mild spinal canal stenosis. Bilateral facet arthrosis and uncovertebral spurring. Mild bilateral neural foraminal narrowing. C6-C7: No significant spinal canal stenosis or neural foraminal narrowing. C7-T1: No significant spinal canal stenosis or neural foraminal narrowing. MRI/Spine Cervical W/WO Contrast IMPRESSION: 1. Stable patchy cord lesions in the cervical spine compatible with demyelinati ng lesions. No new cervical spinal cord lesions. 2. No definite thoracic spinal cord lesions. 3. No active lesions in the cervical or thoracic spinal cord. Reading Location: [id number]
== END | disposition home or self-care (01) ==
LOC: MRI 08:33
PROVIDERS: PCP Nurse Practitioner Family; Referring Provider Student in an Organized Health Care Education/Training Program; Visit Provider Student in an Organized Health Care Education/Training Program
DX: G35.A Relapsing-remitting multiple sclerosis (principal)
CPT/HCPCS: 70553; 72156; 72157; A9575; A4216